=== PATIENT | male | born 1980 | race Caucasian/White ===

== ENCOUNTER 2018-07-31 17:46 | Emergency (ER) | payer OTHER ==
--- NOTE | 2018-07-31 18:59 | ER Document Report ---
ED Medical Screen (RME) - General Chief Complaint: Blurred Vision Stated Complaint: VISION CHANGE Time Seen by Provider: 07/31/18 18:46 Mode of Arrival: Ambulatory Information source: Patient - HPI Patient complains to provider of: BLURRED VISION, HEADACHE Notes: 07/31/18 18:58 Patient here with complaints of blurred vision and headache. He states the vision started blurring about 5 days ago quite suddenly. States that he has double vision in the right eye. This developed a progressive headache since that time. No head injury. No blood thinners. No numbness, tingling, weakness. Exam No distress, nontoxic-appearing. Nonfocal neurological exam. Pupils equal round react to light. Conjunctive a pink without erythema or drainage. No periorbital redness or swelling. Funduscopic exam shows no obvious abnormalities on limited triage UNdilated funduscopic exam. Plan CT brain, visual acuity. An initial examination was made on the patient as part of the triage process, and it was determined a more comprehensive evaluation was necessary. Initial labs were ordered and patient was transferred to another provider in the ED who assumed care and finished evaluation and plan. - Related Data Allergies/Adverse Reactions: No Known Allergies Allergy (Verified 07/31/18 17:54) Physical Exam - Vital signs Vitals: Temp Pulse Resp BP Pulse Ox 99.5 F 67 14 137/74 H 99 07/31/18 17:58 07/31/18 17:58 07/31/18 17:58 07/31/18 17:58 07/31/18 17:58 Course - Vital Signs Vital signs: Temp Pulse Resp BP Pulse Ox 99.5 F 67 14 137/74 H 99 07/31/18 17:58 07/31/18 17:58 07/31/18 17:58 07/31/18 17:58 07/31/18 17:58
--- NOTE | 2018-07-31 19:35 | RADIOLOGY REPORT (SQ) ---
EXAM DESCRIPTION: CT HEAD WITHOUT COMPLETED DATE/TIME: 07/31/2018 7:20 pm REASON FOR STUDY: HEADACHE, BLURRED VISION RIGHT EYE COMPARISON: None. TECHNIQUE: Axial images acquired through the brain without intravenous contrast. Images reviewed wi th bone, brain and subdural windows. Images stored on PACS. All CT scanners at this facility use dose modulation, iterative reconstruction, and/or weight based d osing when appropriate to reduce radiation dose to as low as reasonably achievable (ALARA). [facility]: Dose Right [facility]: CareDose [facility]: Dose Right [facility]: Teradose 4D [facility]: [employer] RADIATION DOSE: CT Rad equipment meets quality standard of care and radiation dose reduction techniq ues were employed. CTDIvol: 53.2 mGy. DLP: 1070 mGy-cm. mGy. LIMITATIONS: None. FINDINGS: VENTRICLES: Normal size and contour. CEREBRUM: No masses. No hemorrhage. No midline shift. No evidence for acute infarction. Normal gra y/white matter differentiation. No areas of low density in the white matter. CEREBELLUM: No masses. No hemorrhage. No alteration of density. No evidence for acute infarction. EXTRAAXIAL SPACES: No fluid collections. No masses. ORBITS AND GLOBE: No intra- or extraconal masses. Normal contour of globe without masses. CALVARIUM: No fracture. PARANASAL SINUSES: No fluid. Minimal maxillary mucosal thickening. SOFT TISSUES: No mass or hematoma. OTHER: No other significant finding. IMPRESSION: No acute intracranial findings. EVIDENCE OF ACUTE STROKE: NO. COMMENT: Quality ID # [id number]: Final reports with documentation of one or more dose reduction techniques (e.g., Automated exposure control, adjustment of the mA and/or kV according to patient size, use of iterative reconstruction technique) TECHNICAL DOCUMENTATION: JOB ID: [id number] [place]-72 2010 [employer]- All Rights Reserved Reading location - IP/workstation name: [email or web address]
[2018-07-31] MEDS ORDERED: METOCLOPRAMIDE HCL INJ/PF 10 MG/2 ML SDV IV ONE (22:28)
[2018-07-31] MEDS ORDERED: KETOROLAC TROMETHAMINE INJ/PF 30 MG/1 ML SDV IV ONE (22:28)
[2018-07-31] MEDS ORDERED: TETRACAINE HCL 0.5% OPH SOLN 4 ML ONE (22:43)
--- NOTE | 2018-07-31 23:03 | ER Document Report ---
ED General - General Chief Complaint: Blurred Vision Stated Complaint: VISION CHANGE Time Seen by Provider: 07/31/18 18:46 Mode of Arrival: Ambulatory Notes: Patient is a 37-year-old male without chronic medical problems who presents with 5 days of blurring of vision on the right as well as a right-sided headache. Headache is described as a mild, throbbing, constant discomfort. Pain started gradually, relatively unchanged since that time. Nothing seems to improve or worsen the headache. He also notes doubling of vision in the right eye or blurring of vision in the eye. States that this likewise started relatively abruptly as far as he can recall 5 days ago and has been ongoing since that time. He was referred to the emergency department by the [place] today for further evaluation. He is scheduled to see ophthalmology on Friday. He denies any history of similar symptoms in the past. No exacerbating or alleviating factor. - Related Data Allergies/Adverse Reactions: No Known Allergies Allergy (Verified 07/31/18 17:54) Past Medical History - General Information source: Patient - Social History Smoking Status: Never Smoker Frequency of alcohol use: None Drug Abuse: None Lives with: Spouse/Significant other Family History: Reviewed & Not Pertinent Patient has suicidal ideation: No Patient has homicidal ideation: No Renal/ Medical History: Denies: Hx Peritoneal Dialysis Review of Systems - Review of Systems Notes: Constitutional: Negative for fever. HENT: Negative for sore throat. Eyes: Positive for blurring of vision on the right Cardiovascular: Negative for chest pain. Respiratory: Negative for shortness of breath. Gastrointestinal: Negative for abdominal pain, vomiting or diarrhea. Genitourinary: Negative for dysuria. Musculoskeletal: Negative for back pain. Skin: Negative for rash. Neurological: Positive for headache 10 point ROS negative except as marked above and in HPI. Physical Exam - Vital signs Vitals: Temp Pulse Resp BP Pulse Ox 99.5 F 67 14 137/74 H 99 07/31/18 17:58 07/31/18 17:58 07/31/18 17:58 07/31/18 17:58 07/31/18 17:58 Interpretation: Normal Notes: PHYSICAL EXAMINATION: GENERAL: Well-appearing, well-nourished and in no acute distress. HEAD: Atraumatic, normocephalic. EYES: On ocular exam the patient has normal extraocular motions, pupillary reflex intact. Ocular pressure 18 on the right, 17 on left. Visual acuity is normal range bilaterally. No evidence of cranial nerve palsy. Fluorescein staining undertaken, no evidence of retained foreign body or corneal abrasion on the right. ENT: nares patent, oropharynx clear without exudates. Moist mucous membranes. NECK: Normal range of motion, supple without lymphadenopathy LUNGS: Breath sounds clear to auscultation bilaterally and equal. No wheezes rales or rhonchi. HEART: Regular rate and rhythm without murmurs ABDOMEN: Soft, nontender, normoactive bowel sounds. No guarding, no rebound. No masses appreciated. EXTREMITIES: Normal range of motion, no pitting or edema. No cyanosis. NEUROLOGICAL: Face symmetric. Tongue protrudes midline. Extraocular motions intact. Pupils are 2 mm and equally reactive. Normal speech, normal gait. 5 out of 5 strength in both the distal and proximal upper and lower extremities bilaterally. Sensation is grossly intact throughout. Finger to nose testing normal. Pronator drift normal. PSYCH: Normal mood, normal affect. SKIN: Warm, Dry, normal turgor, no rashes or lesions noted. - HEENT Visual acuity- Right eye: 20/15 Visual acuity- Left eye: 20/13 Visual acuity- Both eyes: 20/13 Corrective lenses worn: No Course - Re-evaluation Re-evalutation: 07/31/18 23:01 Presentation of a headache with associated blurring of vision on the right. Headache was not maximal in onset, patient has no focal neurologic deficits, no nuchal rigidity, vital signs within normal limits, no papilledema, and patient is overall well in appearance. Based on clinical history and examination I do not suspect an acute subarachnoid hemorrhage, dural venous sinus thrombosis, acute meningitis, or intercranial mass. CT of the head was obtained in triage and is noted to be normal. On ocular exam the patient has normal extraocular motions, pupillary reflex intact. Ocular pressure 18 on the right, 17 on left. Visual acuity is incompletely normal range bilaterally. No evidence of cranial nerve palsy. Fluorescein staining undertaken, no evidence of retained foreign body or corneal abrasion on the right. Migraine cocktail administered and I will determine whether or not this seems to relieve the patient's blurring of vision and mild headache suspect that they may be associated and related primarily to the headache. If he does not have improvement with advised to follow-up with ophthalmology and states that he Edmund has an appointment within 48 hours scheduled. 08/01/18 2340 No significant improvement after administration of migraine cocktail. Patient remains well in appearance, visual acuity remains normal with normal extraocular motions and pupillary reflex. Neuro exam remains normal. At this time will discharge with return precautions and follow-up recommendations. Verbal discharge instructions given a the bedside and opportunity for questions given. Medication warnings reviewed. Patient is in agreement with this plan and has verbalized understanding of return precautions and the need for ophthalmology follow-up on Friday. - Vital Signs Vital signs: Temp Pulse Resp BP Pulse Ox 97.3 F 55 L 18 123/64 99 07/31/18 23:39 07/31/18 23:39 07/31/18 23:39 07/31/18 23:39 07/31/18 23:39 - Diagnostic Test Radiology reviewed: Image reviewed, Reports reviewed Radiology results interpreted by me: 08/01/18 05:26 CT head: No acute intracranial bleed or mass Discharge - Discharge Clinical Impression: Blurring of vision Headache Qualifiers: Headache type: unspecified Headache chronicity pattern: acute headache Intractability: not intractable Qualified Code(s): R51 - Headache Condition: Good Disposition: HOME, SELF-CARE Additional Instructions: Please follow-up with ophthalmology as scheduled. Call your doctor or return to the ED if you have a worsening headache, sudden and severe headache, confusion, slurred speech, facial droop, weakness or numbness in any arm or leg, extreme fatigue, or other symptoms that concern you.
[2018-07-31 23:42] VITALS: BP 123/64
== END 2018-07-31 23:42 | disposition home or self-care (01) ==
LOC: ER 17:46
DX: H53.8 Other visual disturbances (principal); R51 Headache
CPT/HCPCS: 99284; 96374; 96375; 70450; J1885; J2765; J3490

== ENCOUNTER 2018-09-24 06:53 | Emergency (ER) | payer OTHER ==
--- NOTE | 2018-09-24 09:37 | ER Document Report ---
HPI - HPI Patient complains to provider of: Head injury Time Seen by Provider: 09/24/18 09:27 Onset: Just prior to arrival Quality of pain: Other - For Pain Level: 2 Context: Patient presents to the emergency department with injury to the top of his scalp. He reports he was putting up a flag pole at work when the pole fell down and a screw hit him on the top of the head. He reports the area immediately started bleeding now the area feels numb.. Denies change in LOC. No complaints of vomiting. Patient is alert and oriented answering all questions appropriately. Reports tetanus is up-to-date Associated Symptoms: None Exacerbated by: Denies Relieved by: Denies Similar symptoms previously: No Recently seen / treated by doctor: No Past Medical History - General Information source: Patient - Social History Smoking Status: Unknown if Ever Smoked Cigarette use (# per day): No Frequency of alcohol use: None Drug Abuse: None Lives with: Family Family History: Reviewed & Not Pertinent Patient has suicidal ideation: No Patient has homicidal ideation: No - Medical History Medical History: Negative Renal/ Medical History: Denies: Hx Peritoneal Dialysis Surgical Hx: Negative Vertical Provider Document - CONSTITUTIONAL Agree With Documented VS: Yes Exam Limitations: No Limitations General Appearance: WD/WN, No Apparent Distress - INFECTION CONTROL TRAVEL OUTSIDE OF THE [place] IN LAST 30 DAYS: No - HEENT HEENT: Atraumatic - small abrasion ~ 1cm Lshape, to the right top scalp, no active bleeding, Normocephalic, PERRLA. negative: Conjuctival Injection, Pharyngeal Erythema - NECK Neck: Normal Inspection, Supple. negative: Lymphadenopathy-Left, Lymphad enopathy-Right - RESPIRATORY Respiratory: Breath Sounds Normal, No Respiratory Distress - CARDIOVASCULAR Cardiovascular: Regular Rate, Regular Rhythm - MUSCULOSKELETAL/EXTREMETIES Musculoskeletal/Extremeties: TRACY WARD - NEURO Level of Consciousness: Awake, Alert, Appropriate Motor/Sensory: No Motor Deficit - DERM Integumentary: Warm, Dry Adult Front & Back Diagram: 1 - 1 cm irregular abrasion Course - Re-evaluation Re-evalutation: 09/24/18 09:46 Patient's wound cleaned with normal saline and Shur-Clens bacitracin applied. Patient was instructed on signs and symptoms of infection and head injury Dictation of this chart was performed using voice recognition software; therefore, there may be some unintended grammatical errors. - Vital Signs Vital signs: Temp Pulse Resp BP Pulse Ox 97.9 F 68 14 134/83 H 99 09/24/18 06:56 09/24/18 06:56 09/24/18 06:56 09/24/18 06:56 09/24/18 06:56 Discharge - Discharge Clinical Impression: Head injury Qualifiers: Encounter type: initial encounter Qualified Code(s): S09.90XA - Unspecified injury of head, initial encounter Abrasion head Qualifiers: Encounter type: initial encounter Qualified Code(s): S00.91XA - Abrasion of unspecified part of head, initial encounter Condition: Stable Disposition: HOME, SELF-CARE Instructions: Antibiotic Ointment Protection ([facility]), Head Injury Precautions ([facility]), Soap Cleansing ([facility]) Additional Instructions: *You have been treated post head injury with abrasion *Monitor the site for signs of infection such as increasing pain, redness, swelling, warmth *Keep the area clean *Follow up with a primary care provider within one week for recheck *Return to ED for signs of infection, worsening condition, changes, needs Monitor your blood pressure. Your blood pressure was elevated today. This may be because you were anxious, in pain or because you need medication. It is important to follow up with your primary care provider for full evaluation. Forms: Elevated Blood Pressure
[2018-09-24 09:52] VITALS: BP 123/78
== END 2018-09-24 09:56 | disposition home or self-care (01) ==
LOC: ER 06:53
DX: S09.90XA Unspecified injury of head, initial encounter (principal); S00.91XA Abrasion of unspecified part of head, initial encounter; W20.8XXA Other cause of strike by thrown, projected or falling object, initial encounter; Y99.0 Civilian activity done for income or pay
CPT/HCPCS: 99283